=== PATIENT | male | born 2005 | race Caucasian/White ===

== ENCOUNTER 2023-11-07 03:53 | Emergency (ER) | payer OTHER, SELFPAY ==
[2023-11-07 04:07] VITALS: BP 130/88; PULSE 105; RESP 16; TEMP 36.4; O2SAT 97
--- NOTE | 2023-11-07 04:09 | ED_ITS ---
HPI - General Adult General Chief complaint: Extremity Pain/Injury, Lower Stated complaint: right leg pain Time Seen by Provider: 11/07/23 04:05 History of Present Illness HPI narrative: Patient is a 18-year-old gentleman who states that he was working on an essay for several hours and developed discomfort in his right thigh. He has no swelling but states that the discomfort has persisted. He has no bruising ecchymosis no chest pain shortness a breath nausea vomiting abdominal pain and states that he is not able to identify any aggravating or alleviating factors. He is very concerned that he has a DVT. No other complaints or concerns. Patient has no history of clotting disorder does have a congenital bicuspid aortic valve. Related Data Home Medications Medication Instructions Recorded Confirmed finasteride 1 mg tablet 1 mg PO DAILY 11/07/23 11/07/23 lisinopril 10 mg tablet 10 mg PO DAILY 11/07/23 11/07/23 Allergies Allergy/AdvReac Type Severity Reaction Status Date / Time No Known Drug Allergies Allergy Verified 11/07/23 04:13 Review of Systems Status of ROS: Reports: 10 or more systems reviewed and unremarkable except as noted in History and below [facility] Medical History Bicuspid aortic valve ?Q23.1 - Congenital insufficiency of aortic valve (ICD-10) Exam Narrative: Exam Narrative: EXAM GENERAL: Patient appears comfortable and well. EYES: No scleral icterus. LYMPH: No supraclavicular or cervical lymphadenopathy. SKIN: Visible skin seen during exam normal or with benign process only. EXT: No dependent lower extremity pedal edema. No pain to palpation range of motion no swelling noted. HEART: Regular rate and rhythm with no murmurs, rubs, or gallops. LUNGS: Clear to auscultation bilaterally with no crackles or wheezes. ABD: Soft, non tender, non distended. PSYCH: Good eye contact, speech is not pressured. Const: Vital Signs, click to edit/add: Vital Signs - 24 hr 11/07/23 04:07 Temperature 97.6 F Pulse Rate [Pulse Oximeter] 105 H Respiratory Rate 16 Blood Pressure [Ri ght Upper Arm] 130/88 Pulse Oximetry 97 Oxygen Delivery Me thod Room Air Course Course ED Course: D-dimer pending. Vital Signs Vital signs: Initial Vital Signs Temperature 97.6 F 11/07/23 04:07 Temperature Source Temporal Artery Scan 11/07/23 04:07 Pulse Rate 105 H 11/07/23 04:07 Respiratory Rate 16 11/07/23 04:07 Blood Pressure 130/88 11/07/23 04:07 Blood Pressure Mean 102 11/07/23 04:07 Blood Pressure Position Supine 11/07/23 04:07 Pulse Oximetry 97 11/07/23 04:07 Oxygen Delivery Method Room Air 11/07/23 04:07 Vital Signs Temperature 97.6 F 11/07/23 04:07 Pulse Rate 105 H 11/07/23 04:07 Respiratory Rate 16 11/07/23 04:07 Blood Pressure 130/88 11/07/23 04:07 Pulse Oximetry 97 11/07/23 04:07 Oxygen Delivery Method Room Air 11/07/23 04:07 Temperature 97.6 F 11/07/23 04:07 Pulse Rate 105 H 11/07/23 04:07 Respiratory Rate 16 11/07/23 04:07 Blood Pressure 130/88 11/07/23 04:07 Pulse Oximetry 97 11/07/23 04:07 Oxygen Delivery Method Room Air 11/07/23 04:07 Medical Decision Making MDM Narrative Medical decision making narrative: Patient presents with right-sided leg pain after prolonged sitting. He has a normal exam normal vital signs with the exception of mild tachycardia. I did do a D-dimer which was negative. At this point reassurance is offered Tylenol Motrin rest and fluids. Differential Diagnosis Differential Diagnosis: Nerve impingement sprain strain DVT Lab Data Labs: Lab Results 11/07/23 Range/Units 04:21 D-Dimer Quant (PE/DVT) 0.28 (0.00-0.50) ug/ml Discharge Plan Discharge Clinical Impression: Leg pain Patient Disposition: Home, Self-Care Condition: Stable Instructions: Leg Pain (ED) Additional Instructions: Tylenol Motrin Rest Ice Follow-up as needed Activity Level: No Restrictions Discharge Diet: Regular Prescriptions: No Action lisinopril 10 mg tablet 10 mg PO DAILY finasteride 1 mg tablet 1 mg PO DAILY Follow Up/Referrals: Provider,Not a Local [Primary Care Provider] - Stand Alone Forms: Rewind Meth Info Instructions
[2023-11-07 04:43] LABS: D Dimer Quantitative* 0.28 ug/ml (0.00-0.50)
== END 2023-11-07 05:19 | disposition home or self-care (01) ==
PROVIDERS: Emergency Provider Internal Medicine
DX: M79.604 Pain in right leg (principal); X50.1XXA Overexertion from prolonged static or awkward postures, initial encounter
CPT/HCPCS: 36415; 85379; 99283